=== PATIENT | male | born 1955 | race Caucasian/White ===

== ENCOUNTER 2016-06-11 14:21 | Inpatient (IN) | payer OTHER ==
[~2016-06-11] VITALS: Ht 182.9 cm; Wt 66.2 kg
--- NOTE | ~2016-06-11 | 2DMMODE ---
[facility] [address] [place] [address] 2 D/M-MODE ECHOCARDIOGRAM Name: ROMARIO YOUNG Room #: 448-P ADM IN ..#: [id number] Admission: 06/11/16 Attend Phys: Obed Guzman MD Discharge: Date of : 57 Date of Service: 06/12/16 1125 Report #: [id number] THIS REPORT FOR: //name// APPROVED REPORT Study performed: 06/12/2016 09:21:20 EXAM: Comprehensive 2D, Doppler, and color-flow Echocardiogram Patient Location: Echo lab Room #: 448 Blood Pressure: 126/65 mmHg HR: 63 bpm Other Information Study Quality: Fair Technically limited study due to body habitus. Indications Congestive Heart Failure Dyspnea Hx: CABG, PVD, DM, HTN, HLP, morbid obesity. Echo Enhancing Agent Indication: Endocardial border delineation Agent/Amount Used: Definity cc 2D Dimensions RVDd: 51.67 mm LVEF(%): 43.32 (>50%) IVSd: 14.29 (7-11mm) LVOT Diam: 23.35 (18-24mm) LVDd: 51.99 mm PWd: 11.70 (7-11mm) Ascending Ao: 35.64 (22-36mm) LVDs: 40.80 (25-40mm) Aortic Root: 32.95 mm Oleary's LVEF: 43.32 % Volumes Left Atrial Volume (Systole) Single Plane 4CH: 108.09 mL Single Plane 2CH: 76.76 mL LA ESV Index: 36.00 mL/m2 Aortic Valve [facility] [place] [address] 2 D/M-MODE ECHOCARDIOGRAM Name: JAYELISAMACOlamideROMARIO Vanessa Room #: 448-P [facility] IN [facility]#: [id number] Admission: 06/11/16 Attend Phys: Obed Guzman MD Discharge: Date of : 57 Date of Service: 06/12/16 1125 Report #: [id number] AoV Peak Ino.: 1.29 m/s AO Peak Gr.: 6.67 mmHg LVOT Max P.89 mmHg LVOT Max V: 0.99 m/s Mitral Valve E/A Ratio: 1.4 MV Decel. Time: 240.08 ms MV E Max Ino.: 1.02 m/s MV A Ino.: 0.73 m/s MV PHT: 69.62 ms Pulmonary Valve PV Peak Ino.: 1.00 m/s PV Peak Gr.: 3.99 mmHg Pulmonary Vein P Vein S: 43.8 m/s P Vein D: 51.0 m/s P Vein A Dur.: 22.3 m/s Tricuspid Valve TR Peak Ino.: 2.95 m/s RAP Estimate: 10.00 mmHg TR Peak Gr.: 35.00 mmHg RVSP: 45.00 mmHg Left Ventricle The left ventricle is normal size. Regional wall motion abnormalities are noted. Mild concentric left ventricular hypertrophy. Left ventricular systolic function is mildly decreased. LVEF is 45%. Grade II - pseudonormal filling dynamics. Right Ventricle Right ventricle is not well visualized but apprears dilated with decreased funciton. Atria Left atrium is dilated. Right atrium is dilated. Aortic Valve Aortic valve is mildly calcified. No aortic regurgitation is present. There is no aortic valvular stenosis. Mitral Valve The mitral valve is normal in structure. Moderate mitral annular calcification. Mild mitral regurgitation. Tricuspid Valve The tricuspid valve is normal in structure. There is moderate tricuspid regurgitation. The right atrial pressure is estimated at 10 [facility] [address] [place] [address] 2 D/M-MODE ECHOCARDIOGRAM Name: ROMARIO YOUNG Vanessa Room #: 448-P [facility] IN [facility]#: [id number] Admission: 06/11/16 Attend Phys: Obed Guzman MD Discharge: Date of : 57 Date of Service: 06/12/16 1125 Report #: [id number]. There is moderate pulmonary hypertension with an estimated PAPof 45mmHg. Pulmonic Valve The pulmonary valve is normal in structure. Mild pulmonic regurgitation. Great Vessels The aortic root is normal in size. IVC is dilated and collapses <50% with inspiration. <Conclusion> The left ventricle is normal size. Regional wall motion abnormalities are noted. LVEF is 45%. Right ventricle is not well visualized but apprears dilated with decreased funciton. Left atrium is dilated. Right atrium is dilated. Aortic valve is mildly calcified. The mitral valve is normal in structure. Moderate mitral annular calcification. Mild pulmonic regurgitation. <ELECTRONICALLY SIGNED> By: Toi Brunson MD 06/12/16 1125 1125 1125 Toi Brunson MD /INF
--- NOTE | ~2016-06-11 | EKG ---
[address] [place] [address] ELECTROCARDIOGRAM REPORT Name: JAYELISAMACMINESH QuiñonezHarrison Mendez Room #: 448-P ADM IN ..#: [id number] Admission: 06/11/16 Attend Phys: Obed Guzman MD Discharge: Date of : 57 Report #: [id number] THIS REPORT FOR: //name// [facility] ED Test Date: 2016-06-11 Test Time: 15:37:19 Pat Name: ROMARIO YOUNG Department: Room: [facility] Gender: M Order Selector: trevor : 1955 Requested By: Arben Smith Order Number: [id number] MD: Roberto Carlos Torres Measurements Intervals [place] Rate: 63 P: 15 AL: 186 QRS: -92 QRSD: 159 T: 116 QT: 534 QTc: 547 Interpretive Statements Sinus rhythm Right bundle branch block Inferior infarct, old Compared to ECG 05/16/2012 08:22:29 Myocardial infarct finding now present Electronically Signed On 06-13-2016 8:34:14 CDT by Roberto Carlos Torres [email or web address] <ELECTRONICALLY SIGNED> By: Roberto Carlos Torres MD, [facility] 06/13/16 0834 1537 153 Roberto Carlos Torres MD, [facility] /EPI
--- NOTE | ~2016-06-11 | HC ---
[facility] [place] [address] CONSULTATION Name: ROMARIO YOUNG Room #: 448-P ADM IN .R.#: [id number] Admission: 06/11/16 Attend Phys: Obed Guzman MD Discharge: Date of : 57 Report #: [id number] THIS REPORT FOR: //name// CC: Obed Virgen DATE OF SERVICE: 06/11/2016 REASON FOR CONSULTATION: Chronic kidney disease and volume overload. HISTORY OF PRESENT ILLNESS: This is a 61-year-old male who presented to the emergency room with several weeks of increasing dyspnea. This started out with dyspnea on exertion. It has worsened to the point where it includes orthopnea and some dyspnea at rest. He was placed on oxygen in the emergency room. At this point, says he feels the best he has felt in weeks if not months since he has gotten the supplemental oxygen. The patient is very large. He has developed worsening peripheral edema. He has been on some home diuretics in the form of furosemide 40 mg once daily. He says his urine output has not been very high though. He does have nocturia once nightly. He is aware that he has a chronically elevated creatinine level with a clearance of about 30%. He previously had seen a branch service associate at [place], , but has not seen him for years. He says his blood pressure runs about 150 systolic at home. He avoids nonsteroidals. He tries to be on some restriction of sodium in his diet, at least he does not add salt, but knows that he gets a fair amount of salt in everything else that he eats. PAST MEDICAL HISTORY: In 2009, he was here at [facility] and a multivessel coronary artery bypass graft procedure was performed. He says at that time that he was diagnosed with diabetes. He also was diagnosed with hypertension. He is a former smoker but no longer smokes. He has extensive vascular disease, peripherally; he has had bilateral iliac stents placed. He has had fem distal bypasses done. 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 All of this has occurred since 2009. MEDICATIONS: At home include lisinopril 20 mg b.i.d., aspirin 325 mg daily, atenolol 25 mg daily, atorvastatin 40 mg daily, furosemide 40 mg daily, hydralazine 25 mg t.i.d., and pantoprazole 40 mg daily. He takes some fish oil [id number] and no other [id number]-[id number]-xlzwwob medications. ALLERGIES: No known medical allergies. FAMILY HISTORY: Negative for renal disease or renal failure. SOCIAL HISTORY: The patient is , lives in [facility]. He is accompanied by his at this time. He has a [employer] company and works at least part of the time, but has not done much work in the past month due of [facility] [address] [place] [address] CONSULTATION Name: JAYELISAMACOlamideROMARIO Vanessa Room #: 448-P [facility] IN ..#: [id number] Admission: 06/11/16 Attend Phys: Obed Guzman MD Discharge: Date of : 57 Report #: [id number] feeling ill. REVIEW OF SYSTEMS: Has the dyspnea as noted above. Also, the orthopnea. He has been sleep sitting up in a chair for weeks. He thinks his edema was actually worse a few days ago than it is now. He has had some cough. He has occasional yellow sputum. Denies fevers or chills. No palpitations or chest pain. Denies nausea or vomiting. No change in bowel habits. Tends to weigh over 350 pounds, says it is not very much over the past year or may be 10 pounds or so. No difficulty voiding urine. He has nocturia once nightly. No hematuria has been noted. No recent visual or hearing changes. PHYSICAL EXAMINATION: GENERAL: A 61-year-old very large male sitting up in bed, breathing easily with supplemental oxygen. VITAL SIGNS: Blood pressure 140/60, heart rate 65, temperature 97.8, oxygen saturation 93% on oxygen. Height 6 feet, weight 354 pounds according to him, although has not been weighed here, it does not look like. HEENT: Shows pupils are equal and reactive to 4 mm. Sclerae nonicteric. Oral mucosa shows loss of a few teeth. No oral lesions. NECK: Large. I cannot see JVD. Neck is supple without adenopathy or bruit. CHEST: Shows decreased breath sounds bilaterally in the bases. I do not hear rales. HEART: Very distant heart tones and in fact very hard to fruit picker. ABDOMEN: Morbidly obese. Bowel sounds are present. He has extensive abdominal wall edema, impossible to palpate organomegaly or masses. EXTREMITIES: Show no upper extremity edema. He has 2-3+ bilateral lower extremity edema. Lower extremities are fairly tight. He has the surgical absence of the right fourth toe and I see no ischemic toes at this time. LABORATORY DATA: Sodium 144, potassium 4.8, chloride 106, bicarbonate 29, BUN 56, creatinine 2.4, calcium 8.5. Troponin 0.38. White count 8.7, hemoglobin 12.3, hematocrit 37.6, platelets 298,000. Blood gas; pH 7.42, pCO2 of 45.6, pO2 of 80.1. ASSESSMENT: 1. Chronic kidney disease, at least stage 3, possibly stage 4. It depends where his creatinine settles up. He had told the emergency room that he did not want dialysis, but he is nowhere near that with a creatinine level in that range. I do not know if he received bad information previously or had some other ideas about how bad his kidneys were, but they do not appear to be that bad. He does have previously documented proteinuria. We need to quantify. We will get that ordered. From a renal standpoint, he needs to be on his DONNA inhibitor and I will restart that. 2. Volume overload, extensive. He is very symptomatic. He certainly has symptoms of congestive heart failure and his chest x-ray would indicate that he has some component of that. He also could have this much volume overload [place] [address] [place] [address] CONSULTATION Name: JAYROMARIO LEA Vanessa Room #: 448-P [facility] IN ..#: [id number] Admission: 06/11/16 Attend Phys: Obed Guzman MD Discharge: Date of : 57 Report #: [id number] related to nephrotic syndrome. We need to quantify his proteinuria. Whether this is nephrotic syndrome or congestive heart failure, again he needs to be back on his DONNA inhibitor. He needs much more aggressive diuresis, so I will dramatically increase his IV furosemide. 3. Atherosclerotic coronary artery disease with coronary artery bypass graft surgery in 2009, has not received any followup recently. 4. Peripheral vascular disease as documented above. No current ischemic wounds. Multiple previous bypasses and stents. 5. Hypertension, fairly well controlled at this time. Again, he needs to be back on his lisinopril to help with that. 6. Longstanding diabetes mellitus. PLAN: 1. Increase Lasix to 80 mg to 8 hours IV. 2. Tight sodium restriction in his diet. 3. Resume his lisinopril, will go at 20 mg a day at this point. 4. Check urinalysis and urine protein creatinine ratio. 5. Close monitoring of I's and O's as well as daily weights. 6. We will see how he progresses. We may need to intensify either his diuretic regimen or his DONNA inhibitor. 7. We will follow along the care of this patient. <ELECTRONICALLY SIGNED> By: Benjamín Jha MD 06/15/16 1116 17 0107 Michael Masterson MD /nt
[~2016-06-11 14:21] MED LIST: ASA81BEC PO; ASPIRIN325 PO; ATORVASTATIN CA40 MG; CEPHALEXIN 500500 M1; CHANTIX1 MG PO; FISH OIL 1,0001 EAC5 PO; GLUCOPHAGE500 MG PO; LANTUS SUBQ; LIPITOR40 MG PO; LISINOPRIL10 MG PO; LOPRESSOR 50 MG50 M1 PO; LORTAB 5 MG/5001 TA1; LORTAB 5 MG/5001 TAB PO; LORTAB 7.5/5001 TA3 PO; NITROGLYCERIN0.4 MG SL; NOVOLOG MI100 UNIT/2 SQ; NOVOLOG100 UNIT/1; PACERONE 200 M200 M1 PO; PHISOHEX148 ML TP; PLAVIX 75 MG TA75 MG PO; SIMVASTATIN40 MG PO; TOPROL XL25 MG PO; ZESTRIL20 MG PO; ZOCOR40 MG PO
[2016-06-11 14:33] VITALS: BP 125/55
[2016-06-11 15:28] LABS: ABSOLUTE NEUTROPHILS 6.5 thou/uL (1.4-8.2); BASOPHILS 0.9 % (0.0-2.0); EOSINOPHILS 2.9 % (0.0-3.0); HEMATOCRIT 37.6 % (42.0-52.0); HEMOGLOBIN 12.3 gm/dL (14.0-18.0); LYMPHOCYTES 15.3 % (24.0-44.0); MCH 30.8 pg (26.0-34.0); MCHC 32.7 g/dL (28.0-37.0); PLATELET COUNT 298 thou/uL (150-400); POLYS 73.9 % (36.0-66.0); RDW 15.2 % (10.5-14.5); WBC 8.7 thou/uL (4.0-11.0)
[2016-06-11 15:31] LABS: MANUAL DIFF NO
[2016-06-11 15:33] LABS: CALCIUM 8.5 mg/dL (8.5-10.1); CREATININE 2.4 mg/dL (0.7-1.3); POTASSIUM 4.8 mmol/L (3.5-5.1)
[2016-06-11 15:45] LABS: TROPONIN-I 0.38 ng/mL (<0.04-0.07)
[2016-06-11 16:01] LABS: ABG SAMPLE TYPE ARTERIAL; BE(vivo) 4.2 mmol/L (-2 to +3); HCO3 29.2 mmol/L (22.0-26.0); LACTATE 1.41 mmol/L (0.5-2.0); O2Hb 93.6 % (92.0-98.0); PCO2 45.6 mmHg (35.0-45.0); PO2 80.1 mmHg (80.0-100.0); pH 7.425 (7.360-7.450); tCO2 30.6 mmol/L (24.0-30.0)
[2016-06-11 16:02] LABS: STICK SITE L.RADIAL
[2016-06-11 17:37] VITALS: BP 125/54
[2016-06-11 18:00] VITALS: BP 140/60
[2016-06-11] MEDS ORDERED: LASIX 20 MG TAB20 MG PO (19:41)
[2016-06-11] MEDS ORDERED: PANTOPRAZOLE SO40 M1 PO (19:42)
[2016-06-11] MEDS ORDERED: HYDRALAZINE 2525 MG PO (19:43)
[2016-06-11] MEDS ORDERED: ATENOLOL 25 MG25 M1 PO (19:45)
[2016-06-11 20:33] VITALS: BP 121/62
[2016-06-11 22:20] VITALS: BP 122/70
[2016-06-11 23:51] LABS: URINE BILIRUBIN NEGATIVE (Negative); URINE BLOOD TRACE (Negative); URINE COLOR YELLOW; URINE GLUCOSE-RANDOM* NEGATIVE (Negative); URINE KETONES NEGATIVE (Negative); URINE LEUKOCYTES-REFLEX 1+ (Negative); URINE PROTEIN (DIPSTICK) TRACE (Negative); URINE UROBILINOGEN 0.2 E.U./dl (0.2-1.0)
[2016-06-11 23:58] LABS: CASTS None Seen /LPF (None Seen); SQUAMOUS None Seen /LPF (0-3)
[2016-06-11 23:59] LABS: CRYSTALS None Seen /LPF (None Seen); URINE RBC None Seen /HPF (0-2); WBC CLUMPS Few (None Seen)
[2016-06-12 07:09] LABS: HEMATOCRIT 37.8 % (42.0-52.0); MCH 30.3 pg (26.0-34.0); MCHC 31.8 g/dL (28.0-37.0); MCV 95.3 fL (80.0-100.0); RBC 3.96 mil/uL (4.50-6.00); WBC 7.6 thou/uL (4.0-11.0)
[2016-06-12 07:19] LABS: CALCIUM 8.1 mg/dL (8.5-10.1); CREATININE 2.4 mg/dL (0.7-1.3); POTASSIUM 4.6 mmol/L (3.5-5.1)
[2016-06-12 07:38] VITALS: BP 126/65
[2016-06-12 11:15] VITALS: BP 111/53
[2016-06-12 12:07] LABS: URINE CREATININE-RANDOM* 32.4 mg/dL (Not Estab.); URINE PROTEIN-RANDOM* 23.1 mg/dL (Not Estab.)
[2016-06-12 16:18] VITALS: BP 122/57
[2016-06-12 20:37] VITALS: BP 126/64
[2016-06-13 03:49] VITALS: BP 120/47
[2016-06-13 06:05] LABS: HEMATOCRIT 37.7 % (42.0-52.0); HEMOGLOBIN 12.2 gm/dL (14.0-18.0); MCH 30.6 pg (26.0-34.0); MCHC 32.3 g/dL (28.0-37.0); MCV 94.6 fL (80.0-100.0); RBC 3.99 mil/uL (4.50-6.00); RDW 14.7 % (10.5-14.5); WBC 7.8 thou/uL (4.0-11.0)
[2016-06-13 06:15] LABS: CREATININE 2.7 mg/dL (0.7-1.3); POTASSIUM 4.6 mmol/L (3.5-5.1)
[2016-06-13 08:00] VITALS: BP 129/61
[2016-06-13 11:57] VITALS: BP 114/61
[2016-06-13 16:00] VITALS: BP 123/59
[2016-06-13 19:37] VITALS: BP 138/60
[2016-06-14 04:20] VITALS: BP 128/61
[2016-06-14 06:06] LABS: ALBUMIN 2.7 g/dL (3.4-5.0); CALCIUM 8.5 mg/dL (8.5-10.1); CREATININE 2.8 mg/dL (0.7-1.3); PHOSPHORUS 5.8 mg/dL (2.5-4.9); POTASSIUM 4.9 mmol/L (3.5-5.1)
[2016-06-14 08:00] VITALS: BP 138/56
[2016-06-14 12:00] VITALS: BP 106/43
[2016-06-14 16:00] VITALS: BP 124/58
[2016-06-14 19:20] VITALS: BP 110/48
[2016-06-15 05:00] VITALS: BP 110/39
[2016-06-15 06:52] LABS: CALCIUM 8.8 mg/dL (8.5-10.1); CREATININE 2.5 mg/dL (0.7-1.3); MAGNESIUM 2.1 mg/dL (1.8-2.4); PHOSPHORUS 4.7 mg/dL (2.5-4.9); POTASSIUM 4.6 mmol/L (3.5-5.1)
[2016-06-15 07:47] VITALS: BP 128/64
[2016-06-15 19:00] VITALS: BP 100/48
[2016-06-16] VITALS (7 sets, daily range): BP systolic 99–149; BP diastolic 51–80
[2016-06-16] MEDS ORDERED: DEMADEX20 MG PO (12:07)
[2016-06-16] MEDS ORDERED: CARVEDILOL12.5 MG PO (12:07)
[2016-06-16] MEDS ORDERED: SPIRONOLACTONE50 MG PO (12:08)
[2016-06-16] MEDS ORDERED: TORSEMIDE20 MG PO (15:51)
== END 2016-06-16 17:35 | disposition home or self-care (01) | DRG 291 ==
LOC: ER 14:21 → 4S 16:34 → EROBS 16:34 → 4S 17:38 → 4N 06-15 16:45
PROVIDERS: Hospitalist; Internal Medicine; Internal Medicine Nephrology; Nurse Practitioner
DX: I13.0 Hypertensive heart and chronic kidney disease with heart failure and stage 1 through stage 4 chronic kidney disease, or unspecified chronic kidney disease (principal); I50.43 Acute on chronic combined systolic (congestive) and diastolic (congestive) heart failure; N17.9 Acute kidney failure, unspecified; L03.90 Cellulitis, unspecified; L03.119 Cellulitis of unspecified part of limb; Z68.1 Body mass index [BMI] 19.9 or less, adult; N18.4 Chronic kidney disease, stage 4 (severe); E78.5 Hyperlipidemia, unspecified; K21.9 Gastro-esophageal reflux disease without esophagitis; I25.10 Atherosclerotic heart disease of native coronary artery without angina pectoris; E11.51 Type 2 diabetes mellitus with diabetic peripheral angiopathy without gangrene; E87.70 Fluid overload, unspecified; G47.33 Obstructive sleep apnea (adult) (pediatric); E66.01 Morbid (severe) obesity due to excess calories; Z79.82 Long term (current) use of aspirin; Z79.4 Long term (current) use of insulin; Z95.1 Presence of aortocoronary bypass graft; Z87.891 Personal history of nicotine dependence; Z89.421 Acquired absence of other right toe(s); Z90.49 Acquired absence of other specified parts of digestive tract; Z79.899 Other long term (current) drug therapy; E11.22 Type 2 diabetes mellitus with diabetic chronic kidney disease
CPT/HCPCS: 10100; 10102; 10790